=== PATIENT | male | born 1930 | race African-American/Black ===

== ENCOUNTER 2019-06-21 11:14 | Inpatient (IN) ==
[2019-06-21] MEDS ORDERED: cefTRIAXone 1,000 MG in SODIUM CHLORIDE 0.9% 100 ML IV STA (11:18)
[2019-06-21] MEDS ORDERED: AZITHROMYCIN INJ 500 MG in SODIUM CHLORIDE 0.9% 250 ML IV STA (11:18)
[2019-06-21 11:34] LABS: Basophils % 0.5 % (0.0-0.8); Hematocrit 45.5 VOL% (42.0-52.0); Hemoglobin 13.9 GM/DL (14.0-18.0); Immature Granulocytes % 0.8 %; Immature Granulocytes Absolute 0.03 #; Lymphocytes # 0.8 10*3/uL (1.4-4.0); Lymphocytes % 19.9 % (21.2-54.2); Mean Corpuscular HGB Conc 30.5 GM/DL (32-36); Mean Corpuscular Volume 93.8 FL (87-102); Mean Platelet Volume 11.5 FL (9.6-12.0); Monocytes % 12.4 % (1.7-12.7); NRBC # 0.02 10*3/uL; Neutrophils % 66.4 % (38.7-73.9); Platelet Count 132 T/CUMM (130-400); Red Blood Count 4.85 MC/CUMM (3.8-5.5); Red Cell Distribution Width 13.7 % (9.3-17.3); White Blood Count 3.9 T/CUMM (4-12)
[2019-06-21] MEDS ORDERED: SODIUM CHLORIDE 0.9% 500 ML IV STA (11:39)
[2019-06-21 11:49] LABS: Band Neutrophils 4 % (0-10); Lymphocytes 16 % (20-55); Segmented Neutrophils 68 % (50-85); Total Cells Counted 100
[2019-06-21 11:50] LABS: Hypochromasia Slight; Platelet Estimate Adequate
[2019-06-21 11:57] LABS: Alanine Aminotransferase 15 U/L (16-61); Albumin 3.1 G/DL (3.4-5.0); Alkaline Phosphatase 63 U/L (45-117); Aspartate Amino Transferase 26 U/L (0-37); Blood Urea Nitrogen 99 MG/DL (7-18); Calcium 10.1 MG/DL (8.5-10.1); Estimated Glom Filtration Rate 39 ML/MIN; Glucose 112 MG/DL (74-106); Osmolality,Calculated 327.1 MOS/KG (273-304); Total Protein 9.4 G/DL (6.4-8.3)
[2019-06-21] MEDS ORDERED: SODIUM CHLORIDE 0.9% 1,000 ML IV STA (12:28)
[2019-06-21] MEDS ORDERED: GLUCAGON 1 MG VIAL IM PRN (13:43)
[2019-06-21] MEDS ORDERED: ACETAMINOPHEN 325 MG TABLET PO PRN (13:43)
[2019-06-21] MEDS ORDERED: ONDANSETRON 4 MG/2 ML VIAL IV PRN (13:43)
[2019-06-21] MEDS: PIPERACILLIN/TAZOBACTAM 3,375 MG in SODIUM CHLORIDE 0.9% 100 ML IV SCH (14:50)
[2019-06-21] MEDS: ZINC SULFATE 220 MG CAPSULE PO SCH (15:35)
[2019-06-21] MEDS: CARBIDOPA/LEVODOPA 25-100 MG TABLET PO SCH ×2 (15:35→21:05)
[2019-06-21] MEDS: DEXTROSE 5% NACL 0.9% 1,000 ML IV SCH (15:50)
[2019-06-21] MEDS: INSULIN REGULAR 100 UNIT/ML SUBCUT SCH ×2 (16:16→21:05)
[2019-06-21] MEDS: HYDROXYCHLOROQUINE 200 MG TABLET PO SCH (21:05)
[2019-06-22] MEDS: DEXTROSE 5% NACL 0.9% 1,000 ML IV SCH (00:45)
[2019-06-22] MEDS: PIPERACILLIN/TAZOBACTAM 3,375 MG in SODIUM CHLORIDE 0.9% 100 ML IV SCH ×3 (00:45→16:10)
[2019-06-22 05:06] LABS: Basophils % 0.8 % (0.0-0.8); Immature Granulocytes % 0.5 %; Immature Granulocytes Absolute 0.02 #; Lymphocytes # 0.6 10*3/uL (1.4-4.0); Lymphocytes % 15.4 % (21.2-54.2); Mean Corpuscular HGB Conc 30.3 GM/DL (32-36); Mean Corpuscular Volume 94.9 FL (87-102); Mean Platelet Volume 11.4 FL (9.6-12.0); Monocytes % 9.6 % (1.7-12.7); NRBC # 0.02 10*3/uL; Neutrophils % 73.7 % (38.7-73.9); Red Blood Count 4.11 MC/CUMM (3.8-5.5); Red Cell Distribution Width 13.7 % (9.3-17.3); White Blood Count 3.8 T/CUMM (4-12)
[2019-06-22 05:07] LABS: Alanine Aminotransferase < 9 U/L (16-61); Albumin 2.2 G/DL (3.4-5.0); Alkaline Phosphatase 46 U/L (45-117); Aspartate Amino Transferase 31 U/L (0-37); Blood Urea Nitrogen 75 MG/DL (7-18); Estimated Glom Filtration Rate 56 ML/MIN; Glucose 112 MG/DL (74-106); Osmolality,Calculated 327.4 MOS/KG (273-304); Total Protein 8.2 G/DL (6.4-8.3)
[2019-06-22 05:08] LABS: Hemoglobin 11.8 GM/DL (14.0-18.0); Platelet Count 101 T/CUMM (130-400)
[2019-06-22 05:16] LABS: Band Neutrophils 5 % (0-10); Hypochromasia 1+; Lymphocytes 14 % (20-55); Platelet Estimate Decreased; Segmented Neutrophils 72 % (50-85); Total Cells Counted 100
[2019-06-22] MEDS: HYDROXYCHLOROQUINE 200 MG TABLET PO SCH ×2 (06:20→20:28)
[2019-06-22] MEDS: AZITHROMYCIN 250 MG TABLET PO SCH (08:19)
[2019-06-22] MEDS: CARBIDOPA/LEVODOPA 25-100 MG TABLET PO SCH ×3 (08:19→20:28)
[2019-06-22] MEDS: ASPIRIN EC 81 MG TABLET PO SCH (08:19)
[2019-06-22] MEDS: INSULIN REGULAR 100 UNIT/ML SUBCUT SCH ×4 (09:16→20:27)
[2019-06-22] MEDS: DEXTROSE 5% 1,000 ML IV SCH ×2 (12:50→23:25)
[2019-06-23] MEDS: PIPERACILLIN/TAZOBACTAM 3,375 MG in SODIUM CHLORIDE 0.9% 100 ML IV SCH ×3 (01:12→17:17)
[2019-06-23 05:21] LABS: Basophils % 0.6 % (0.0-0.8); Eosinophils % 0.2 % (0.00-10.9); Hemoglobin 10.4 GM/DL (14.0-18.0); Immature Granulocytes % 0.6 %; Immature Granulocytes Absolute 0.03 #; Lymphocytes # 0.7 10*3/uL (1.4-4.0); Lymphocytes % 13.3 % (21.2-54.2); Mean Corpuscular HGB Conc 29.7 GM/DL (32-36); Mean Corpuscular Volume 96.4 FL (87-102); Mean Platelet Volume 11.1 FL (9.6-12.0); Monocytes % 8.3 % (1.7-12.7); NRBC # 0.02 10*3/uL; Red Blood Count 3.63 MC/CUMM (3.8-5.5); Red Cell Distribution Width 13.9 % (9.3-17.3); White Blood Count 5.2 T/CUMM (4-12)
[2019-06-23 05:24] LABS: Platelet Count 97 T/CUMM (130-400)
[2019-06-23 05:41] LABS: Band Neutrophils 1 % (0-10); Hypochromasia 1+; Lymphocytes 11 % (20-55); Nucleated Red Blood Cells 1 (0-5); Platelet Estimate Decreased; Segmented Neutrophils 82 % (50-85); Total Cells Counted 100
[2019-06-23 05:42] LABS: Ovalocytes Slight
[2019-06-23] MEDS: CARBIDOPA/LEVODOPA 25-100 MG TABLET PO SCH ×3 (09:05→20:56)
[2019-06-23] MEDS: ASPIRIN EC 81 MG TABLET PO SCH (09:05)
[2019-06-23] MEDS: HYDROXYCHLOROQUINE 200 MG TABLET PO SCH ×2 (09:05→20:56)
[2019-06-23] MEDS: ZINC SULFATE 220 MG CAPSULE PO SCH (09:05)
[2019-06-23] MEDS: AZITHROMYCIN 250 MG TABLET PO SCH (09:05)
[2019-06-23] MEDS: INSULIN REGULAR 100 UNIT/ML SUBCUT SCH ×4 (10:02→20:56)
[2019-06-23 17:28] LABS: Calcium 9.1 MG/DL (8.5-10.1)
[2019-06-23] MEDS: DEXTROSE 5% 1,000 ML IV SCH (17:45)
[2019-06-23] MEDS: POTASSIUM CHLORIDE 20 MEQ/15 ML UDCUP PER TUBE PRN (18:47)
[2019-06-24] MEDS: POTASSIUM CHLORIDE 20 MEQ/15 ML UDCUP PER TUBE PRN ×6 (00:20→21:55)
[2019-06-24] MEDS: PIPERACILLIN/TAZOBACTAM 3,375 MG in SODIUM CHLORIDE 0.9% 100 ML IV SCH ×2 (00:20→10:12)
[2019-06-24] MEDS: INSULIN REGULAR 100 UNIT/ML SUBCUT SCH ×4 (08:24→20:17)
[2019-06-24] MEDS: AZITHROMYCIN 250 MG TABLET PO SCH (10:14)
[2019-06-24] MEDS: HYDROXYCHLOROQUINE 200 MG TABLET PO SCH ×2 (10:14→21:55)
[2019-06-24] MEDS: ASPIRIN EC 81 MG TABLET PO SCH (10:14)
[2019-06-24] MEDS: CARBIDOPA/LEVODOPA 25-100 MG TABLET PO SCH ×3 (10:14→21:55)
[2019-06-24 11:24] LABS: Basophils % 0.3 % (0.0-0.8); Eosinophils % 0.2 % (0.00-10.9); Hematocrit 39.4 VOL% (42.0-52.0); Immature Granulocytes % 0.7 %; Immature Granulocytes Absolute 0.04 #; Lymphocytes # 0.7 10*3/uL (1.4-4.0); Lymphocytes % 10.9 % (21.2-54.2); Mean Corpuscular HGB Conc 29.7 GM/DL (32-36); Mean Corpuscular Volume 96.1 FL (87-102); Mean Platelet Volume 10.8 FL (9.6-12.0); NRBC # 0.03 10*3/uL; Neutrophils % 80.9 % (38.7-73.9); Red Cell Distribution Width 13.9 % (9.3-17.3)
[2019-06-24 11:25] LABS: Calcium 9.1 MG/DL (8.5-10.1); Osmolality,Calculated 315.4 MOS/KG (273-304)
[2019-06-24 11:27] LABS: Hemoglobin 11.7 GM/DL (14.0-18.0)
[2019-06-24 11:28] LABS: Platelet Count 80 T/CUMM (130-400)
[2019-06-24 11:31] LABS: Band Neutrophils 8 % (0-10); Hypochromasia 1+; Lymphocytes 9 % (20-55); Macrocytosis Slight; Segmented Neutrophils 81 % (50-85); Total Cells Counted 100
[2019-06-24 11:32] LABS: Platelet Estimate Decreased
[2019-06-25 06:22] LABS: Calcium 9.1 MG/DL (8.5-10.1); Osmolality,Calculated 273.8 MOS/KG (273-304)
[2019-06-25] MEDS: INSULIN REGULAR 100 UNIT/ML SUBCUT SCH ×4 (08:44→20:31)
[2019-06-25] MEDS: AZITHROMYCIN 250 MG TABLET PO SCH (08:44)
[2019-06-25] MEDS: ZINC SULFATE 220 MG CAPSULE PO SCH (08:44)
[2019-06-25] MEDS: CARBIDOPA/LEVODOPA 25-100 MG TABLET PO SCH ×3 (08:44→22:08)
[2019-06-25] MEDS: ASPIRIN EC 81 MG TABLET PO SCH (08:44)
[2019-06-25] MEDS: MICAFUNGIN 100 MG in SODIUM CHLORIDE 0.9% 100 ML IV SCH (09:58)
[2019-06-25 12:27] LABS: Basophils % 0.5 % (0.0-0.8); Eosinophils % 0.3 % (0.00-10.9); Hematocrit 37.1 VOL% (42.0-52.0); Hemoglobin 11.3 GM/DL (14.0-18.0); Immature Granulocytes % 1.1 %; Immature Granulocytes Absolute 0.07 #; Lymphocytes # 0.8 10*3/uL (1.4-4.0); Lymphocytes % 11.8 % (21.2-54.2); Mean Corpuscular HGB Conc 30.5 GM/DL (32-36); Mean Corpuscular Volume 94.4 FL (87-102); Mean Platelet Volume 12.2 FL (9.6-12.0); Monocytes % 5.5 % (1.7-12.7); NRBC # 0.03 10*3/uL; Neutrophils % 80.8 % (38.7-73.9); Platelet Count 81 T/CUMM (130-400); Red Blood Count 3.93 MC/CUMM (3.8-5.5); Red Cell Distribution Width 14.1 % (9.3-17.3); White Blood Count 6.5 T/CUMM (4-12)
[2019-06-25 12:48] LABS: Band Neutrophils 16 % (0-10); Eosinophils 1 % (0-10); Lymphocytes 6 % (20-55); Platelet Estimate Decreased; Segmented Neutrophils 74 % (50-85); Total Cells Counted 100
[2019-06-25 12:49] LABS: Anisocytosis 1+; Macrocytosis Slight
[2019-06-26 06:53] LABS: Basophils % 0.4 % (0.0-0.8); Eosinophils % 0.4 % (0.00-10.9); Hemoglobin 11.4 GM/DL (14.0-18.0); Immature Granulocytes % 1.1 %; Immature Granulocytes Absolute 0.06 #; Lymphocytes # 0.8 10*3/uL (1.4-4.0); Lymphocytes % 14.1 % (21.2-54.2); Mean Corpuscular Volume 95.7 FL (87-102); Monocytes % 6.8 % (1.7-12.7); NRBC # 0.04 10*3/uL; Neutrophils % 77.2 % (38.7-73.9); Platelet Count 66 T/CUMM (130-400); Red Blood Count 3.97 MC/CUMM (3.8-5.5); Red Cell Distribution Width 13.9 % (9.3-17.3); White Blood Count 5.5 T/CUMM (4-12)
[2019-06-26 06:54] LABS: Calcium 9.3 MG/DL (8.5-10.1); Osmolality,Calculated 316.2 MOS/KG (273-304)
[2019-06-26 06:57] LABS: Band Neutrophils 2 % (0-10); Eosinophils 1 % (0-10); Lymphocytes 19 % (20-55); Nucleated Red Blood Cells 1 (0-5); Segmented Neutrophils 70 % (50-85); Total Cells Counted 100
[2019-06-26 06:58] LABS: Atypical Lymphocytes Few; Hypochromasia 1+
[2019-06-26 06:59] LABS: Macrocytosis Slight; Platelet Estimate Decreased; Prealbumin 4.8 MG/DL (20-40)
[2019-06-26] MEDS: MICAFUNGIN 100 MG in SODIUM CHLORIDE 0.9% 100 ML IV SCH (08:36)
[2019-06-26] MEDS: INSULIN REGULAR 100 UNIT/ML SUBCUT SCH ×4 (08:41→21:04)
[2019-06-26] MEDS ORDERED: POTASSIUM PHOSPHATE 21 MMOL in SODIUM CHLORIDE 0.9% 250 ML IV ONE (09:00)
[2019-06-26] MEDS: CARBIDOPA/LEVODOPA 25-100 MG TABLET PO SCH ×3 (10:29→21:05)
[2019-06-26] MEDS: ASPIRIN EC 81 MG TABLET PO SCH (10:29)
[2019-06-27 05:42] LABS: Basophils % 0.2 % (0.0-0.8); Eosinophils % 0.7 % (0.00-10.9); Hematocrit 36.8 VOL% (42.0-52.0); Immature Granulocytes % 1.1 %; Immature Granulocytes Absolute 0.05 #; Lymphocytes # 0.8 10*3/uL (1.4-4.0); Lymphocytes % 16.3 % (21.2-54.2); Mean Corpuscular HGB Conc 29.9 GM/DL (32-36); Mean Corpuscular Volume 94.8 FL (87-102); Mean Platelet Volume 12.6 FL (9.6-12.0); Monocytes % 8.7 % (1.7-12.7); NRBC # 0.04 10*3/uL; Platelet Count 65 T/CUMM (130-400); Red Blood Count 3.88 MC/CUMM (3.8-5.5); Red Cell Distribution Width 14.2 % (9.3-17.3); White Blood Count 4.6 T/CUMM (4-12)
[2019-06-27 07:15] LABS: Anisocytosis Slight; Macrocytosis 1+; Platelet Estimate Decreased; Target Cells Few
[2019-06-27] MEDS: ASPIRIN EC 81 MG TABLET PO SCH (09:01)
[2019-06-27] MEDS: INSULIN REGULAR 100 UNIT/ML SUBCUT SCH ×4 (09:01→22:03)
[2019-06-27] MEDS: MICAFUNGIN 100 MG in SODIUM CHLORIDE 0.9% 100 ML IV SCH (09:01)
[2019-06-27] MEDS: CARBIDOPA/LEVODOPA 25-100 MG TABLET PO SCH ×3 (09:02→21:50)
[2019-06-27] MEDS: DEXTROSE 10% 250 ML BAG IV PRN (22:07)
[2019-06-28 07:41] LABS: Basophils % 0.2 % (0.0-0.8); Hematocrit 39.9 VOL% (42.0-52.0); Hemoglobin 11.5 GM/DL (14.0-18.0); Immature Granulocytes Absolute 0.04 #; Lymphocytes # 0.8 10*3/uL (1.4-4.0); Lymphocytes % 18.9 % (21.2-54.2); Mean Corpuscular HGB Conc 28.8 GM/DL (32-36); Mean Corpuscular Volume 98.5 FL (87-102); Mean Platelet Volume 12.9 FL (9.6-12.0); Monocytes % 8.5 % (1.7-12.7); NRBC # 0.03 10*3/uL; Neutrophils % 70.4 % (38.7-73.9); Platelet Count 60 T/CUMM (130-400); Red Blood Count 4.05 MC/CUMM (3.8-5.5); Red Cell Distribution Width 14.1 % (9.3-17.3); White Blood Count 4.1 T/CUMM (4-12)
[2019-06-28 08:17] LABS: Platelet Estimate Decreased
[2019-06-28 08:18] LABS: Macrocytosis Slight
[2019-06-28] MEDS: INSULIN REGULAR 100 UNIT/ML SUBCUT SCH ×4 (09:20→21:22)
[2019-06-28] MEDS: ASPIRIN EC 81 MG TABLET PO SCH (09:20)
[2019-06-28] MEDS: CARBIDOPA/LEVODOPA 25-100 MG TABLET PO SCH ×3 (09:21→21:22)
[2019-06-28 13:36] LABS: Calcium 9.1 MG/DL (8.5-10.1); Osmolality,Calculated 318.9 MOS/KG (273-304)
[2019-06-28] MEDS: MICAFUNGIN 100 MG in SODIUM CHLORIDE 0.9% 100 ML IV SCH (17:23)
[2019-06-28] MEDS: DEXTROSE 10% 250 ML BAG IV PRN (21:29)
[2019-06-29 05:07] LABS: Calcium 9.2 MG/DL (8.5-10.1); Osmolality,Calculated 318.9 MOS/KG (273-304)
[2019-06-29] MEDS: INSULIN REGULAR 100 UNIT/ML SUBCUT SCH ×4 (08:29→22:56)
[2019-06-29] MEDS: CARBIDOPA/LEVODOPA 25-100 MG TABLET PO SCH ×3 (09:47→22:55)
[2019-06-29] MEDS: ASPIRIN EC 81 MG TABLET PO SCH (09:47)
[2019-06-29] MEDS: MICAFUNGIN 100 MG in SODIUM CHLORIDE 0.9% 100 ML IV SCH (11:15)
[2019-06-29] MEDS ORDERED: SODIUM CHLORIDE 0.9% 1,000 ML IV ONE (17:41)
[2019-06-29] MEDS: LACTATED RINGERS 1,000 ML IV SCH (18:16)
[2019-06-30] MEDS: LACTATED RINGERS 1,000 ML IV SCH ×2 (06:18→18:30)
[2019-06-30] MEDS: INSULIN REGULAR 100 UNIT/ML SUBCUT SCH ×4 (09:44→23:32)
[2019-06-30] MEDS: CARBIDOPA/LEVODOPA 25-100 MG TABLET PO SCH ×2 (09:45→18:13)
[2019-06-30] MEDS: ASPIRIN EC 81 MG TABLET PO SCH (09:45)
[2019-06-30] MEDS: MICAFUNGIN 100 MG in SODIUM CHLORIDE 0.9% 100 ML IV SCH (15:23)
[2019-07-01] MEDS: INSULIN REGULAR 100 UNIT/ML SUBCUT SCH (09:20)
[2019-07-01 12:22] VITALS: BP 116/65
== END 2019-07-01 13:25 | disposition hospice, home (50) | DRG 871 ==
LOC: EDUNIT# → EDBD → N.ED 11:14 → SUATTDRO 13:43 → N.EDINP 13:43 → SUPCPDRO 13:43 → N.2W 16:39
PROVIDERS: ADMIT Family Medicine; ATTEND Internal Medicine